=== PATIENT | female | born 1965 | race Caucasian/White ===

== ENCOUNTER → 2017-07-29 | Outpatient (CLI) | payer BC, OTHER ==
--- NOTE | ~2017-07-29 | MY30 ---
[facility]. [facility] A Service of [facility] & [facility] RADIOLOGY TEXT RESULTS PATIENT: GREGORY ANDERSON LOCATION: [facility] : 69 UNIT #: [id number] AGE: [address]: Amparo Lewis MD SEX: F ORDER DR: [id number] [address] [address] [id number] O MR#: [id number] Acc #: [id number] NAME: GREGORY ANDERSON : 1965 SEX: F STUDY DATE/TIME: 07/29/2017 8:55 UNIT: [facility] ROOM: STUDY DESCRIPTION: MY SCREEN SUSAN BILAT DIGITAL Attending Physician: Amparo Lewis M.D. Referring Physician: Amparo Lewis M.D. Ordering Physician: Amparo Lewis M.D. Primary Care Physician: Amparo Lewis M.D. MEDICAL IMAGING REPORT This report is preliminary unless electronic signature is present. EXAM Digital screening mammogram 07/29/17 [facility] HISTORY 52-year-old woman no risk elevation, prior breast biopsies. Annual screen. COMPARISON: Outside mammograms [facility] date to 02/05/11 with most recent 03/23/13. FINDINGS Digital imaging of each breast was completed utilizing a two-view examination of each breast in craniocaudal and mediolateral-oblique projections. Review and interpretation of digital mammograms include a second review in conjunction with FDA-approved CAD device. There is a normal parenchymal presentation bilaterally consistent with the patient's age. There are no breast masses imaged and no parenchymal asymmetry is visualized. There are no suspicious microcalcifications and I see no focal architectural disturbance. Addendum: Biopsy marker stable central left breast location. IMPRESSION Negative screening digital mammogram. One-year followup recommended. Patients over the age of 40 are entered into a reminder system with target due date for the next mammogram. A result letter will also be sent to the patient. BIRADS: 1 Negative [facility] A Service [facility] & [facility] RADIOLOGY TEXT RESULTS PATIENT: GREGORY ANDERSON LOCATION: [facility] : 69 UNIT #: [id number] AGE: [address]: Amparo Lewis MD SEX: F ORDER DR: Dictated by... Titi Kemp M.D. THIS IS AN ELECTRONICALLY VERIFIED REPORT Titi Kemp M.D. at 07/29/2017 3:01 PM LAURY/gagandeep TD: 07/29/2017 13:51 JOB #: [id number] MEDICAL IMAGING REPORT Page 1 of 1
== END | disposition home or self-care (01) ==
LOC: SMAM 08:03
DX: Z12.31 Encounter for screening mammogram for malignant neoplasm of breast (principal); Z98.890 Other specified postprocedural states
CPT/HCPCS: G0202